=== PATIENT | male | born 1940 | race Caucasian/White ===

== ENCOUNTER 2016-09-09 10:34 | Inpatient (IN) ==
[2016-09-09] MEDS ORDERED: ONDANSETRON 4 MG/2 ML INJECTION IVP PRN (11:20)
[2016-09-09] MEDS ORDERED: ALBUTEROL/IPRATROPIUM 2.5mg-0.5mg/3ml NEB AEROSOL PRN (13:25)
--- OUTSIDE RECORDS SUMMARY | 2016-09-09 13:36 | External Medical Summary | Continuity of Care Document ---
:1940 Author Organization [facility] Care Team Providers Name Role Phone IRMA ALVAREZ Admitting Physician IRMA ALVAREZ Attending Physician PING GRIGGS Consulting Physician COLIN MILES Consulting Physician Hospital Admission Diagnosis No data in the System Social History Element Description Code Description Smoking Status Code Start Date End Date System Smoking Status [id number] Never smoker SNOMED-CT Problems No data in the system Medications RxNorm Medication Dose Route Instructions Indications Start End Status Date Date 733343 Gemfibrozil 600 600 Oral orally 2 times Active MG Oral Tablet milligram per day (administer 30 minutes before morning and evening meals) Ibuprofen 800 800 Oral orally pain Active MG Oral Tablet milligram Multivitamins 1 Oral orally every Active tablet-caps day ule 4510391 [place]-3 Acid Oral orally Active Ethyl Esters (administer ([facility]) 1250 MG with a meal) Oral Capsule 7646 Omeprazole 20 Oral orally 2 times Active milligram per day (swallow whole (do not crush or chew) OR open capsule, sprinkle contents over tablespoonful applesauce; swallow all immediately/do not chew pellets) 323260 Pramipexole 0.5 Oral orally every Active milligram day at bedtime 357315 Tamsulosin 0.4 Oral orally every No hydrochloride milligram day Longer 0.4 MG Oral Active Capsule Allergies Code Code System Allergy Type Reaction Severity Start End Date Status Substance Date 4839350 RXNorm Nickel Drug Unknown Active allergy 5 7400 RXNorm Nickel Drug Unknown Active allergy 5 Results Laboratory Results Order: CBC With Automated DifferentialLegend: D=Delta, H=High, L=Low, HH=Critical High, LL=Critical Low, AA=Critical Alpha-Numeric, C=Corrected, A=Abnormal LOINC Test Result Flag Range Units Date 6690-2 1WBC # Bld Auto 4.5 4.5-11.0 10^3/mm3 07/08/2016 16:25 65864-4 1Retics # Auto 4.28 L 4.50-5.90 10^6/mm3 07/08/2016 16:25 27378-0 1Hgb BldV-mCnc 12.0 L 13.5-17.5 g/dl 07/08/2016 16:25 4544-3 1Hct VFr Bld Auto 37.5 L 41.0-53.0 % 07/08/2016 16:25 787-2 1MCV RBC Auto 87.6 82.0-100.0 10^6/mm3 07/08/2016 16:25 785-6 1MCH RBC Qn Auto 28.0 27.0-34.0 pg 07/08/2016 16:25 786-4 1MCHC RBC Auto-mCnc 32.0 32.0-36.0 g/dl 07/08/2016 16:25 788-0 1RDW RBC Auto-Rto 13.8 11.7-15.0 % 07/08/2016 16:25 777-3 1Platelet # Bld Auto 178 150-450 10^3/mm3 07/08/2016 16:25 98858-5 1PMV Bld 11.1 H 7.4-10.4 07/08/2016 16:25 69534-7 1Neutrophils # CSF 55.3 40.0-74.0 % 07/08/2016 16:25 1LYMPH% 27.8 14.0-46.0 % 07/08/2016 16:25 77275-5 1CD43 Ag Tiss Ql ImStn 15.1 H 4.0-13.0 % 07/08/2016 16:25 711-2 1Eosinophil # Bld Auto 1.1 <=4.0 % 07/08/2016 16:25 704-7 1Basophils # Bld Auto 0.7 <=3.0 % 07/08/2016 16:25 751-8 1Neutrophils # Bld Auto 2.5 1.8-7.8 07/08/2016 16:25 23144-3 1Lymphocytes # Bld 1.3 0.7-4.5 07/08/2016 16:25 79932-8 1CD43 Ag Tiss Ql ImStn 0.7 0.1-1.0 07/08/2016 16:25 711-2 1Eosinophil # Bld Auto 0.05 <=4.00 07/08/2016 16:25 704-7 1Basophils # Bld Auto 0.03 <=0.20 07/08/2016 16:25 1MANDIFF N 07/08/2016 16:25 51750-7 1RBC Bld Auto N 07/08/2016 16:25 Performing Lab Footnotes:[address] [place] [address] - [id number] - [address] [place] [address] [place] Order: Comprehensive Metabolic PanelLegend: D=Delta, H=High, L=Low, HH= Critical High, LL=Critical Low, AA=Critical Alpha-Numeric, C=Corrected, A= Abnormal LOINC Test Result Flag Range Units Date 2345-7 1Glucose SerPl-mCnc 89 70-105 mg/dl 07/08/2016 16:25 3094-0 1BUN SerPl-mCnc 16 7-25 mg/dl 07/08/2016 16:25 2160-0 1Creat SerPl-mCnc 1.2 0.6-1.3 mg/dl 07/08/2016 16:25 78806-3 1Creat/Urea nit SerPl 13 13-39 07/08/2016 16:25 2951-2 1Sodium SerPl-sCnc 135 135-145 mmol/L 07/08/2016 16:25 05965-0 1Potassium SerPl-mCnc 4.3 3.5-5.1 mmol/L 07/08/2016 16:25 2075-0 1Chloride SerPl-sCnc 102 98-107 mmol/l 07/08/2016 16:25 8-9 1CO2 SerPl-sCnc 29 21-31 mmol/l 07/08/2016 16:25 64700-1 1Anion Gap SerPl-sCnc 8 L 9-16 mmol/L 07/08/2016 16:25 2692-2 1Osmolality SerPl 281 277-298 mOsm/kg 07/08/2016 16:25 22344-3 1Calcium SerPl-mCnc 8.8 8.2-10.0 mg/dl 07/08/2016 16:25 1742-6 1ALT SerPl-cCnc 11 7-52 IU/L 07/08/2016 16:25 1920-8 1AST SerPl-cCnc 40 H 13-39 IU/L 07/08/2016 16:25 1715-2 1ACP SerPl-cCnc 73 34-104 U/L 07/08/2016 16:25 1975-2 1Bilirub SerPl-mCnc 0.6 0.3-1.0 mg/dl 07/08/2016 16:25 2885-2 1Prot SerPl-mCnc 6.3 6.0-8.3 g/dL 07/08/2016 16:25 1751-7 1Albumin SerPl-mCnc 3.8 3.5-5.7 g/dl 07/08/2016 16:25 2336-6 1Globulin Ser-mCnc 2.5 2.3-3.2 g/dL 07/08/2016 16:25 1759-0 1Albumin/Glob SerPl 1.5 1.2-2.0 07/08/2016 16:25 1GFR 59 L 60-116 GFRunits 07/08/2016 16:25 [id number] [address] [place] [id number] [place] [address] [place] Vital Signs No data in the system Plan of Care No data in the system Procedures No data in the system Encounters No data in the system Immunizations No data in the system Functional Status No data in the system Hospital Discharge Instructions No data in the system
--- OUTSIDE RECORDS SUMMARY | 2016-09-09 13:36 | External Medical Summary | Continuity of Care Document ---
:1940 Author Organization [facility] Care Team Providers Name Role Phone IRMA ALVAREZ Admitting Physician IRMA ALVAREZ Attending Physician PING GRIGGS Consulting Physician COLIN MILES Consulting Physician Hospital Admission Diagnosis Code Admission Diagnosis Date ENCOUNTER FOR PREPROCEDURAL CARDIOVASCULAR EXAMINATION Social History Element Description Code Description Smoking Status Code Start Date End Date System Smoking Status [id number] Never smoker SNOMED-CT Problems No data in the system Medications RxNorm Medication Dose Route Instructions Indications Start End Status Date Date 994218 Gemfibrozil 600 600 Oral orally 2 times Active MG Oral Tablet milligram per day (administer 30 minutes before morning and evening meals) Ibuprofen 800 800 Oral orally pain Active MG Oral Tablet milligram Multivitamins 1 Oral orally every Active tablet- ule 2860074 [place]-3 Acid Oral orally Active Ethyl Esters (administer ([facility]) 1250 MG with a meal) Oral Capsule 7646 Omeprazole 20 Oral orally 2 times Active milligram per day (swallow whole (do not crush or chew) OR open capsule, sprinkle contents over tablespoonful applesauce; swallow all immediately/do not chew pellets) 767091 Pramipexole 0.5 Oral orally every Active milligram day at bedtime 929877 Tamsulosin 0.4 Oral orally every No hydrochloride milligram day Longer 0.4 MG Oral Active Capsule Allergies Code Code System Allergy Type Reaction Severity Start End Date Status Substance Date 9694582 RXNorm Nickel Drug Unknown Active allergy 5 7400 RXNorm Nickel Drug Unknown Active allergy 5 Results Laboratory Results Order: CBC With Automated DifferentialLegend: D=Delta, H=High, L=Low, HH=Critical High, LL=Critical Low, AA=Critical Alpha-Numeric, C=Corrected, A=Abnormal LOINC Test Result Flag Range Units Date 6690-2 1WBC # Bld Auto 4.5 4.5-11.0 10^3/mm3 07/08/2016 16:25 67445-6 1Retics # Auto 4.28 L 4.50-5.90 10^6/mm3 07/08/2016 16:25 60733-2 1Hgb BldV-mCnc 12.0 L 13.5-17.5 g/dl 07/08/2016 [...] Bld Auto 178 150-450 10^3/mm3 07/08/2016 16:25 41833-7 1PMV Bld 11.1 H 7.4-10.4 07/08/2016 16:25 99230-8 1Neutrophils # CSF 55.3 40.0-74.0 % 07/08/2016 16:25 1LYMPH% 27.8 14.0-46.0 % 07/08/2016 16:25 74916-4 1CD43 Ag Tiss Ql ImStn 15.1 H 4.0-13.0 % 07/08/2016 16:25 711-2 1Eosinophil # Bld Auto 1.1 <=4.0 % 07/08/2016 16:25 704-7 1Basophils # Bld Auto 0.7 <=3.0 % 07/08/2016 16:25 751-8 1Neutrophils # Bld Auto 2.5 1.8-7.8 07/08/2016 16:25 80377-3 1Lymphocytes # Bld 1.3 0.7-4.5 07/08/2016 16:25 48327-5 1CD43 Ag Tiss Ql ImStn 0.7 0.1-1.0 07/08/2016 16:25 711-2 1Eosinophil # Bld Auto 0.05 <=4.00 07/08/2016 16:25 704-7 1Basophils # Bld Auto 0.03 <=0.20 07/08/2016 16:25 1MANDIFF N 07/08/2016 16:25 89965-1 1RBC Bld Auto N 07/08/2016 16:25 Performing Lab Footnotes:[address] [place] [address] - [id number] - [address] [place] [address] [place] Order: Comprehensive Metabolic PanelLegend: D=Delta, H=High, L=Low, HH= Critical High, LL=Critical Low, AA=Critical Alpha-Numeric, C=Corrected, A= Abnormal LOINC Test Result Flag Range Units Date 57 1Glucose SerPl-mCnc 89 70-105 mg/dl 07/08/2016 16:25 3094-0 1BUN SerPl-mCnc 16 7-25 mg/dl 07/08/2016 16:25 2160-0 1Creat SerPl-mCnc 1.2 0.6-1.3 mg/dl 07/08/2016 16:25 05871-5 1Creat/Urea nit SerPl 13 13-39 07/08/2016 16:25 2951-2 1Sodium SerPl-sCnc 135 135-145 mmol/L 07/08/2016 16:25 31231-3 1Potassium SerPl-mCnc 4.3 3.5-5.1 mmol/L 07/08/2016 16:25 2075-0 1Chloride SerPl-sCnc 102 98-107 mmol/l 07/08/2016 16:25 8-9 1CO2 SerPl-sCnc 29 21-31 mmol/l 07/08/2016 16:25 94296-9 1Anion Gap SerPl-sCnc 8 L 9-16 mmol/L 07/08/2016 16:25 2692-2 1Osmolality SerPl 281 277-298 mOsm/kg 07/08/2016 16:25 38416-6 1Calcium SerPl-mCnc 8.8 8.2-10.0 mg/dl 07/08/2016 16:25 [...] L 60-116 GFRunits 07/08/2016 16:25 [id number] [address] [place] [address] - MUNOZ M [place] Vital Signs No data in the system Plan of Care No data in the system Procedures No data in the system Encounters Date Code Diagnosis Status (ICD10) - D54879 ENCOUNTER PREPROCEDURAL CV EXAM Active Immunizations No data in the system Functional Status No data in the system Hospital Discharge Instructions No data in the system
--- OUTSIDE RECORDS SUMMARY | 2016-09-09 13:36 | External Medical Summary | Summary of Care ---
:1940 Author Name Tiffanie Avila M.D. Address Unavailable Unavailable , Care Team Providers Name Role Phone Tiffanie Avila M.D. 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 Medications Name Dates Details CeleXA 20 MG Oral Tablet Refills:0 EppM.D., Ti Moreno [id number]-1028 Active Flomax 0.4 MG Oral Capsule Refills:0 EppM.D., Ti Moreno Tnesm7-Oyp-3234 Active Magnesium Oxide 400 MG Oral Tablet Refills:0 EppM.D., Ti Moreno Coodo0-Usz-4481 Active Allergies and Adverse Reactions Name Dates Details No Known Drug Allergies(Allergy) Status:Active Procedures Procedure Dates Details Procedures not documented Immunization Name Dates Details Immunizations not documented Social History Smoking Status Name Dates Details Unknown if ever smoked Vital Signs Date Test Result Details 04-Jul-2016 09:40 Heart Rate 83/min Status:Comments:Location: ; Weight 146lb Status: Physical Findings 95 Status:Comments:O2 Saturation Results Date Description Value Details Results not documented Plan of Care Name Dates Details Planned Observations Planned Goals not documented Planned Encounters Appointment; Provider: Ti Avila M.D. [id number] 11:30 Appointment; Provider: Ti Avila M.D. [id number] 12:00 Instructions Name Dates Details Instructions not documented Encounters Appointment; Ti Avila M.D. [id number] Encounter Diagnosis:Problem not documented 09:30
--- OUTSIDE RECORDS SUMMARY | 2016-09-09 13:36 | External Medical Summary | Summary of Care ---
:1940 Author Name Tiffanie Avila M.D. 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 Non-Hodgkin's lymphoma(202.80, C85.90) Status:Active Medications Name Dates Details CeleXA 20 MG Oral Tablet Refills:0 EppM.D., Ti Moreno [id number]-Dmp-4895 Active Flomax 0.4 MG Oral Capsule Refills:0 EppM.D., Ti Moreno Active Magnesium Oxide 400 MG Oral Tablet Refills:0 EppM.D., Ti Moreno Jodwa1-Nni-1218 Active Allergies and Adverse Reactions Name Dates Details No Known Drug Allergies(Allergy) Status:Active Procedures Procedure Dates Details History of Surgery For Abdominal Aortic Aneurysm Procedures not documented Immunization Name Dates Details Immunizations not documented Family History Mother Name Dates Details Family history of malignant neoplasm(V16.9, Z80.9) Status:Active Social History Name Dates Details - Status: Smoking Status Name Dates Details Former smoker Vital Signs Date Test Result Details 04-Jul-2016 09:40 Heart Rate 83/min Status:Comments:Location: ; Weight 146lb Status: Physical Findings 95 Status:Comments:O2 Saturation Results Date Description Value Details Results not documented Plan of Care Name Dates Details Planned Observations Planned Goals not documented Planned Encounters Appointment; Provider: Ti Avila M.D. [id number] 11:30 Appointment; Provider: Ti Avila M.D. 12:00 Instructions Name Dates Details Instructions not documented Encounters Appointment; Ti Avila M.D. Encounter Diagnosis:Problem not documented 09:30
--- OUTSIDE RECORDS SUMMARY | 2016-09-09 13:36 | External Medical Summary | Summary of Care ---
[...] MG Oral Tablet Refills:0 EppM.D., Ti Moreno Meaxw8-Aua-5403 Active Flomax 0.4 MG Oral Capsule Refills:0 EppM.D.Ti Uroza9-Ppf-7842 Active Magnesium Oxide 400 MG Oral Tablet Refills:0 EppM.D.Ti Qnxtf5-Gie-4530 Active Allergies and Adverse Reactions Name Dates [...] Details Planned Observations Planned Goals not documented Instructions Name Dates Details Instructions not documented Encounters Appointment; Ti Avila M.D. [id number] Encounter Diagnosis:Problem not documented 09:30
--- OUTSIDE RECORDS SUMMARY | 2016-09-09 13:36 | External Medical Summary ---
:1940 Author Name [facility] Care Team Providers Name Role Phone MD MILES JEFFREY Primary Care Provider [phone] Reason For Visit Reason for Visit from 07/12/2016 10:57 AM:Pt Stated Reason for Adm : taking a polpy off of the back of my tongue Chief Complaint OROPHARYNGEAL MASS Social History Social History from 07/12/2016 2:02 PM:Tobacco Use? : Former SmokerSocial History from 07/12/2016 10:57 AM:Tobacco Use? : Former Smoker Functional Status Functional Status from 07/12/2016 2:08 PM:LOC : AlertFunctional Status from 2016 2:07 PM:LOC : AlertFunctional Status from 07/12/2016 1:29 PM:LOC : AlertFunctional Status from 07/12/2016 10:57 AM:LOC : AlertOriented To : Person, Place,Time,EventWeight Bearing Status : FullAssist Level : Independent# Assists : Independent Vital Signs Hospital Vital Signs from 07/12/2016 3:00 PM:Temp : 98.1Heart Rate : 81Resp Rate : 20Systolic BP (mmHg) : 117Diastolic BP (mmHg) : 45Mean BP (mmHg) : 64O2 Saturation (%) : 96Hospital Vital Signs from 07/12/2016 2:45 PM:Heart Rate : 76Resp Rate : 16Systolic BP (mmHg) : 121Diastolic BP (mmHg) : 53Mean BP (mmHg) : 81O2 Saturation (%) : 97Hospital Vital Signs from 07/12/2016 2:30 PM:Heart Rate : 75Resp Rate : 17Systolic BP (mmHg) : 123Diastolic BP (mmHg) : 94Mean BP ( mmHg) : 108O2 Saturation (%) : 97Hospital Vital Signs from 07/12/2016 2:20 PM: Heart Rate : 81Resp Rate : 8Systolic BP (mmHg) : 138Diastolic BP (mmHg) : 66Mean BP (mmHg) : 91O2 Saturation (%) : 98Hospital Vital Signs from 07/12/2016 2 :15 PM:Heart Rate : 75Resp Rate : 10Systolic BP (mmHg) : 174Diastolic BP (mmHg) : 151Mean BP (mmHg) : 155O2 Saturation (%) : 98Hospital Vital Signs from 2016 2:10 PM:Temp : 97.6Heart Rate : 77Resp Rate : 17Systolic BP (mmHg) : 127Diastolic BP (mmHg) : 67Mean BP (mmHg) : 83O2 Saturation (%) : 96Hospital Vital Signs from 07/12/2016 2:05 PM:Heart Rate : 73Resp Rate : 10O2 Saturation (% ) : 98Hospital Vital Signs from 07/12/2016 2:00 PM:Heart Rate : 76Resp Rate : 14Systolic BP (mmHg) : 148Diastolic BP (mmHg) : 73Mean BP (mmHg) : 94O2 Saturation (%) : 98Hospital Vital Signs from 07/12/2016 1:55 PM:Heart Rate : 76Resp Rate : 10Systolic BP (mmHg) : 145Diastolic BP (mmHg) : 71Mean BP (mmHg) : 114O2 Saturation (%) : 97Hospital Vital Signs from 07/12/2016 1:50 PM:Heart Rate : 79Resp Rate : 11Systolic BP (mmHg) : 150Diastolic BP (mmHg) : 78Mean BP ( mmHg) : 104O2 Saturation (%) : 97Hospital Vital Signs from 07/12/2016 1:45 PM: Heart Rate : 76Resp Rate : 8Systolic BP (mmHg) : 143Diastolic BP (mmHg) : 74Mean BP (mmHg) : 93O2 Saturation (%) : 96Hospital Vital Signs from 07/12/2016 1 :40 PM:Heart Rate : 80Resp Rate : 10Systolic BP (mmHg) : 146Diastolic BP (mmHg) : 75Mean BP (mmHg) : 94O2 Saturation (%) : 99Hospital Vital Signs from 2016 1:35 PM:Heart Rate : 81Resp Rate : 13Systolic BP (mmHg) : 142Diastolic BP ( mmHg) : 88Mean BP (mmHg) : 95O2 Saturation (%) : 100Hospital Vital Signs from 01/2017 1:30 PM:Heart Rate : 81Resp Rate : 8Systolic BP (mmHg) : 142Diastolic BP (mmHg) : 74Mean BP (mmHg) : 90O2 Saturation (%) : 100Hospital Vital Signs from 07/12/2016 1:25 PM:Temp : 98.1Heart Rate : 82Resp Rate : 10Systolic BP (mmHg ) : 141Diastolic BP (mmHg) : 73Mean BP (mmHg) : 101O2 Saturation (%) : 100Hospital Vital Signs from 07/12/2016 11:30 AM:Weight : 61.6/ kgHeight : 5/6 ft ,inTemperature : 98.0 FPulse : 71Respirations : 16BP : 131/61Hospital Vital Signs from 07/12/2016 10:57 AM:Weight : 61.6/ kgHeight : 5/6 ft,in Results Problems Encounter Diagnosis Fall Risk Status:Active. Encounters Encounter Diagnosis Fall Risk Status:Active. Plan of Care Follow-up Appointments from 07/12/2016 2:02 PM:#1 Office appointment: : Dr. Alvarez# 1 Date/Time : 07/18/2016 11:30 AMAddress # 1 : [facility]: [address] [place]- or Procedures Completed Direct laryngoscopy with excision oropharyngeal mass , by MD IRMA ALVAREZ, on 07/12/2016 12:03 PM Immunizations No immunizations administered or ordered. Hospital Course Hospital Discharge Instructions How to care for yourself at home from 07/12/2016 2:02 PM:Discharge Activity : Activity as tolerated,May ShowerDo not drive or operate machinery for: : 24 hoursDischarge Diet : As before hospitalization,Diet as toleratedDischarge Diet : : Avoid greasy and spicy foods for 24 hours as these may cause nausea. Eat a small snack prior to taking pain medicationDischarge Wound Care : Notify your physician if the following develops: redness, swelling, drainage or color of drainage changes, odor or increased pain.Call your doctor if: : Fever over 101 F or severe chills,Tingling or numbness develops,You have persistent or worsening symptomsSpecific Discharge Teaching Instructions provided: : Luisarge on Warfarin : No Allergies, Adverse Reactions, Alerts This section is enrollment eligibility representative of the current allergy information, at the time of the CCD generation. In the case of regeneration of the CCD, the allergy information may not reflect the state of knownallergies at the time of the CCD' s subject visit. No Latex Allergy.No IV Contrast Allergy.No Known Drug Allergies. Medication Medication reconciliation has not been performed.
--- OUTSIDE RECORDS SUMMARY | 2016-09-09 13:36 | External Medical Summary | Continuity of Care Document ---
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 Social History Element Description Code Description Smoking Status Code Start Date End Date System Smoking Status 0219424 Former smoker SNOMED-CT Problems No data in the system Medications RxNorm Medication Dose Route Instructions Indications Start End Status Date Date 918175 Gemfibrozil 600 600 Oral orally 2 times Active MG Oral Tablet milligram per day (administer 30 minutes before morning and evening meals) 5640 Ibuprofen 800 Oral orally pain Active milligram Multivitamins 1 Oral orally every Active tablet-caps day ule 8606403 [place]-3 Acid Oral orally Active Ethyl Esters (administer ([facility]) 1250 MG with a meal) Oral Capsule 7646 Omeprazole 20 Oral orally 2 times Active milligram per day (swallow whole (do not crush or chew) OR open capsule, sprinkle contents over tablespoonful applesauce; swallow all immediately/do not chew pellets) 169542 Pramipexole 0.5 Oral orally every Active milligram day at bedtime 224398 Tamsulosin 0.4 Oral orally every No hydrochloride milligram day Longer 0.4 MG Oral Active Capsule Allergies Code Code System Allergy Type Reaction Severity Start End Date Status Substance Date 7224299 RXNorm Nickel Drug Unknown Active allergy 5 7400 RXNorm Nickel Drug Unknown Active allergy 5 Results No data in the system Vital Signs Vitals Value Date O2% BldC Oximetry 97 11/14/2015 BP Systolic 134 mmHg 11/14/2015 BP Diastolic 70 mmHg 11/14/2015 Body Temperature 98.7 F 11/14/2015 Respiratory Rate 18 11/14/2015 Height 68 in 11/14/2015 Weight Measured 153.6 lbs 11/14/2015 BSA (Body Surface Area) 1.87833 11/14/2015 BMI (Body Mass Index) 23.5 11/14/2015 Plan of Care No data in the system Procedures Code Code System Procedure Name Target Site Date of Procedure 82465 CPT4 REPAIR ENTROPION EXCISION TARSAL WEDGE Encounters Date Code Diagnosis Status (ICD10) - Q37130 SENILE ENTROPION LEFT LOWER EYELID Active Immunizations No data in the system Functional Status No data in the system Hospital Discharge Instructions BeahmINSTRUCTIONS FOR EYE DROPS:Erythromycin ointment twice daily.Ice pack tonight 20 minutes an hour for 4 hours.May use frozen corn/peasIf you are taking glaucoma drops, continue as you usually do. Do NOT stop your glaucoma medicationsDiet as tolerated.No driving until Dr. Griggs gives his approval.Resume regular medications.Activity LevelActivities - Your physician will inform you when you may return to normal activities.Yes, up and about as tolerated.Yes, shower or bath.PLEASE TAKE NOTE:If you are having excessive or persistent pain, swelling, bleeding, nausea, or other problems you should call your surgeon, .If you are unable to contact your surgeon, call [facility], .Thank you for using [facility].YOUR NEXT APPOINTMENT IS:Friday11/15/2015 at 8:[address] Griggs's [place] office.
--- OUTSIDE RECORDS SUMMARY | 2016-09-09 13:36 | External Medical Summary | Continuity of Care Document ---
:1940 Author Organization [facility] Care Team Providers Name Role Phone ABIEL CARBAJAL Admitting Physician ABIEL CARBAJAL Attending Physician COLIN MILES Primary Care Physician Hospital Admission Diagnosis No data in the System Social History Element Description Code Description Smoking Status Code Start Date End Date System Smoking Status 5059950 Former smoker SNOMED-CT 2015 Problems Code Code System Problem Name Start Date End Date Status 702309278 SNOMED-CT Dyspnea 08/2016 Active Medications RxNorm Medication Dose Route Instructions Indications Start End Status Date Date 19720303 Acyclovir 400 MG 400 Oral orally 2 times Active Oral Tablet milligram per day Allopurinol 300 300 Oral orally every Active MG Oral Tablet milligram day 20020831 Citalopram 20 MG 20 Oral orally every Active Oral Tablet milligram day 6581 Magnesium Oxide 400 Oral orally 2 times health and Active milligram per day (; wellness Ordered Dose: of magnesium oxide) 34655 Ondansetron 8 Oral orally every nausea and Active milligram 12 hours as vomiting needed. 8640 Prednisone 100 Oral orally every Active milligram day (administer with food or milk;) 19820805 Prochlorperazine 10 Oral orally every 4 nausea and Active 10 MG Oral milligram to 6 hours as vomiting Tablet needed. (do not exceed 4 doses in a 24 hour period;) 709321 Tamsulosin 0.4 Oral orally every Active hydrochloride milligram day 0.4 MG Oral Capsule 20020831 Citalopram 20 MG 20 Oral orally every No Oral Tablet milligram day Longer Active Fiber 0.4 gram Oral orally every constipation No day as needed. Longer Active 508528 Gemfibrozil 600 600 Oral orally 2 times No MG Oral Tablet milligram per day Longer (administer 30 Active minutes before morning and evening meals) 189105 Ibuprofen 800 MG 800 Oral orally pain No Oral Tablet milligram Longer Active 069010 Levofloxacin 500 500 Oral orally every No MG Oral Tablet milligram day Longer Active Multivitamins 1 Oral orally every No tablet-cap day Longer pradip Active 3374856 [place]-3 Acid Oral orally No Ethyl Esters (administer Longer (HALFWAY) 1250 MG with a meal) Active Oral Capsule 7646 Omeprazole 20 Oral orally 2 times No milligram per day Longer (swallow whole Active (do not crush or chew) OR open capsule, sprinkle contents over tablespoonful applesauce; swallow all immediately/do not chew pellets) 883107 Pramipexole 0.5 Oral orally every No milligram day at bedtime Longer Active 067457 Tamsulosin 0.4 Oral orally every No hydrochloride milligram day Longer 0.4 MG Oral Active Capsule Allergies No Known Allergies Results Laboratory Results Order: BNP B type Natiuretic PeptidesLegend : D=Delta, H=High, L=Low, HH=Critical High, LL=Critical Low, AA=Critical Alpha- Numeric, C=Corrected, A=Abnormal LOINC Test Result Flag Range Units Date 23278-7 1BNP SerPl-mCnc 739.0 H 0.0-100.0 pg/ml 09/07/2016 10:23 Performing Lab Footnotes:[address] [place] [address] - [id number] - [address] [place] [id number] [place] [address] Order: Blood Gas ArterialLegend: D=Delta, H=High, L=Low, HH=Critical High, LL= Critical Low, AA=Critical Alpha-Numeric, C=Corrected, A=Abnormal LOINC Test Result Flag Range Units Date 29333-6 1Horowitz index temp adj RA 09/07/2016 09:25 BldMV+IhG-Rto 2756-5 1pH Ur 7.435 7.350-7.450 09/07/2016 09:25 2019 1pCO2 BldA 34.0 L 35.0-45.0 mm/hg 09/07/2016 09:25 1PO2 48.0 L 60.0-100.0 mm/hg 09/07/2016 09:25 8 1HCO3 Ser-sCnc 22.8 22.0-26.0 mmol/l 09/07/2016 09:25 1924-7 1Base excess BldA Calc-sCnc -1.0 -2.0-3.0 mmol/l 09/07/2016 09:25 2025-3 1CO2 BldA-sCnc 24.0 24.0-30.0 mmol/l 09/07/2016 09:25 3-6 1SaO2 % Bld from pO2 85.0 L 97.0-99.0 % 09/07/2016 09:25 [facility]forming [facility]notes:[id number] [address] [place] [address] - [facility] Order: CBC With Manual DifferentialOrder Result Comment:1Critical to Tavia RN- 1151 @ 6512. akLegend: D=Delta, H=High, L=Low, HH=Critical High, LL=Critical Low , AA=Critical Alpha-Numeric, C=Corrected, A=Abnormal LOINC Test Result Flag Range Units Date 78902 1WBC # Bld Auto 29.1 CH 4.5-11.0 10^3/mm3 09/07/2016 09:04 Test Comment: 1Confirmed by repeat analysis. 08489-7 1Retics # Auto 4.15 L 4.50-5.90 10^6/mm3 09/07/2016 09:04 55686-9 1Hgb BldV-mCnc 11.9 L 13.5-17.5 g/dl 09/07/2016 09:04 4544-3 1Hct VFr Bld Auto 36.3 L 41.0-53.0 % 09/07/2016 09:04 787-2 1MCV RBC Auto 87.5 82.0-100.0 10^6/mm3 09/07/2016 09:04 785-6 1MCH RBC Qn Auto 28.7 27.0-34.0 pg 09/07/2016 09:04 786-4 1MCHC RBC Auto-mCnc 32.8 32.0-36.0 g/dl 09/07/2016 09:04 788-0 1RDW RBC Auto-Rto 15.6 H 11.7-15.0 % 09/07/2016 09:04 777-3 1Platelet # Bld Auto 148 L 150-450 10^3/mm3 09/07/2016 09:04 13622-4 1PMV Bld 11.2 H 7.4-10.4 09/07/2016 09:04 94098-9 1Neutrophils # CSF 86 H 40-74 09/07/2016 09:04 1LYMPH 5 L 14-46 09/07/2016 09:04 35764-4 1Monocytes # CSF 3 L 4-13 09/07/2016 09:04 1BANDS 6 H 0-3 09/07/2016 09:04 702-1 1Anisocytosis Bld Ql Smear 1+ 09/07/2016 09:04 80566-0 1Hypochromia Bld Ql Auto Slight 09/07/2016 09:04 1WBCCOM Increased 09/07/2016 09:04 75703-6 1Bizarre platelets Bld Ql Decreased 09/07/2016 09:04 Smear Performing Lab Footnotes:[facility] [id number] [address], [place] [id number] [place] [address] M [place] Order: Comprehensive Metabolic PanelLegend: D=Delta, H=High, L=Low, HH= Critical High, LL=Critical Low, AA=Critical Alpha-Numeric, C=Corrected, A= Abnormal LOINC Test Result Flag Range Units Date 2344-08 1Glucose SerPl-mCnc 134 H 70-105 mg/dl 09/07/2016 09:04 3094-0 1BUN SerPl-mCnc 26 H 7-25 mg/dl 09/07/2016 09:04 2160-0 1Creat SerPl-mCnc 1.1 0.6-1.3 mg/dl 09/07/2016 09:04 53387-5 1Creat/Urea nit SerPl 24 13-39 09/07/2016 09:04 2951-2 1Sodium SerPl-sCnc 134 L 135-145 mmol/L 09/07/2016 09:04 07725-0 1Potassium SerPl-mCnc 3.7 3.5-5.1 mmol/L 09/07/2016 09:04 2075-0 1Chloride SerPl-sCnc 99 98-107 mmol/l 09/07/2016 09:04 2028-9 1CO2 SerPl-sCnc 24 21-31 mmol/l 09/07/2016 09:04 30947-8 1Anion Gap SerPl-sCnc 15 9-16 mmol/L 09/07/2016 09:04 2692-2 1Osmolality SerPl 285 277-298 mOsm/kg 09/07/2016 09:04 49411-7 1Calcium SerPl-mCnc 8.7 8.2-10.0 mg/dl 09/07/2016 09:04 1742-6 1ALT SerPl-cCnc 24 7-52 IU/L 09/07/2016 09:04 1920-8 1AST SerPl-cCnc 121 H 13-39 IU/L 09/07/2016 09:04 1715-2 1ACP SerPl-cCnc 86 34-104 U/L 09/07/2016 09:04 1975-2 1Bilirub SerPl-mCnc 0.8 0.3-1.0 mg/dl 09/07/2016 09:04 2885-2 1Prot SerPl-mCnc 6.0 6.0-8.3 g/dL 09/07/2016 09:04 1751-7 1Albumin SerPl-mCnc 3.7 3.5-5.7 g/dl 09/07/2016 09:04 2336-6 1Globulin Ser-mCnc 2.3 2.3-3.2 g/dL 09/07/2016 09:04 1759-0 1Albumin/Glob SerPl 1.6 1.2-2.0 09/07/2016 09:04 1GFR 62 60-116 GFRunits 09/07/2016 09:04 Performing Lab Footnotes:[facility] [id number] - [address] [place] [address] - [facility] Vital Signs Vitals Value Date Body Temperature 97.1 F 09/07/2016 Respiratory Rate 20 09/07/2016 O2% BldC Oximetry 88 09/07/2016 BP Systolic 104 mmHg 09/07/2016 BP Diastolic 62 mmHg 09/07/2016 Height 69 in 09/07/2016 Weight Measured 140 lbs 09/07/2016 BSA (Body Surface Area) 1.13045 09/07/2016 BMI (Body Mass Index) 20.7 09/07/2016 Plan of Care No data in the system Procedures No data in the system Encounters No data in the system Immunizations No data in the system Functional Status No data in the system Hospital Discharge Instructions No data in the system
--- OUTSIDE RECORDS SUMMARY | 2016-09-09 13:36 | External Medical Summary | Summary of Care ---
[...] MG Oral Tablet Refills:0 EppM.D., Ti Moreno [id number] Active Flomax 0.4 MG Oral Capsule Refills:0 EppM.D.Ti [id number] Active Magnesium Oxide 400 MG Oral Tablet Refills:0 EppM.D.Ti [id number]-1507 Active Allergies and Adverse Reactions Name Dates [...] not documented Encounters Appointment; Ti Avila M.D. [id number] Encounter Diagnosis:Problem not documented 09:30
--- OUTSIDE RECORDS SUMMARY | 2016-09-09 13:36 | External Medical Summary | Continuity of Care Document ---
:1940 Author Organization [facility] Care Team Providers Name Role Phone ABIEL CARBAJAL Admitting Physician ABIEL CARBAJAL Attending Physician COLIN MILES Primary Care Physician Hospital Admission Diagnosis No data in the System Social History Element Description Code Description Smoking Status Code Start Date End Date System Smoking Status [id number] Former smoker SNOMED-CT 2015 Problems Code Code System Problem Name Start Date End Date Status 158722937 SNOMED-CT Dyspnea 08/2016 Active Medications RxNorm Medication Dose Route Instructions Indications Start End Status Date Date 19720303 Acyclovir 400 400 Oral orally 2 times Active MG Oral Tablet milligra per day m 435 Albuterol 2.5 Inhalatio inhaled 4 Active milligra n times per day m 435 Albuterol 2 Inhalatio inhaled every shortness of Active inhalati n 4 to 6 hours breath or on as needed. wheezing (administer with spacer;) 19720308 Albuterol 2 MG 2 Oral orally every 4 shortness of Active Oral Tablet milligra to 6 hours as breath or m needed. wheezing Allopurinol 300 300 Oral orally every Active MG Oral Tablet milligra day m 20020831 Citalopram 20 20 Oral orally every Active MG Oral Tablet milligra day m 759698 Furosemide 40 40 Oral orally every Active MG Oral Tablet milligra morning m 82 Magnesium Oxide 400 Oral orally 2 times health and Active milligra per day (; wellness m Ordered Dose: of magnesium oxide) 03515 Ondansetron 8 Oral orally every nausea and Active milligra 12 hours as vomiting m needed. 777875 pantoprazole 40 40 Oral orally every Active MG Delayed milligra morning Release Oral m Tablet 19820805 Prochlorperazin 10 Oral orally every 4 nausea and Active e 10 MG Oral milligra to 6 hours as vomiting Tablet m needed. (do not exceed 4 doses in a 24 hour period;) 427039 Tamsulosin 0.4 Oral orally every Active hydrochloride milligra day 0.4 MG Oral m Capsule 20020831 Citalopram 20 20 Oral orally every No MG Oral Tablet milligra day Longer m Active Fiber 0.4 gram Oral orally every constipation No day as needed. Longer Active 102540 Gemfibrozil 600 600 Oral orally 2 times No MG Oral Tablet milligra per day Longer m (administer 30 Active minutes before morning and evening meals) Ibuprofen 800 800 Oral orally pain No MG Oral Tablet milligra Longer m Active 270904 Levofloxacin 500 Oral orally every No 500 MG Oral milligra day Longer Tablet m Active Multivitamins 1 Oral orally every No tablet-c day Longer apsule Active 3056601 [place]-3 Acid Oral orally No Ethyl Esters (administer Longer (MCFP) 1250 MG with a meal) Active Oral Capsule 7646 Omeprazole 20 Oral orally 2 times No milligra per day Longer m (swallow whole Active (do not crush or chew) OR open capsule, sprinkle contents over tablespoonful applesauce; swallow all immediately/do not chew pellets) 406083 Pramipexole 0.5 Oral orally every No milligra day at bedtime Longer m Active 8640 Prednisone 100 Oral orally every No milligra day Longer m (administer Active with food or milk;) 463621 Tamsulosin 0.4 Oral orally every No hydrochloride milligra day Longer 0.4 MG Oral m Active Capsule Allergies No Known Allergies Results No data in the system Vital Signs Vitals Value Date Body Temperature 96.5 F 09/09/2016 Respiratory Rate 28 09/09/2016 BP Systolic 89 mmHg 09/09/2016 BP Diastolic 52 mmHg 09/09/2016 Height 68 in 09/09/2016 Weight Measured 145 lbs 09/09/2016 BSA (Body Surface Area) 1.7828 09/09/2016 BMI (Body Mass Index) 22.2 09/09/2016 Plan of Care No data in the system Procedures No data in the system Encounters No data in the system Immunizations No data in the system Functional Status No data in the system Hospital Discharge Instructions No data in the system
--- OUTSIDE RECORDS SUMMARY | 2016-09-09 13:36 | External Medical Summary | Continuity of Care Document ---
:1940 Author Organization [facility] Care Team Providers Name Role Phone PING GRIGGS Admitting Physician PING GRIGGS Attending Physician Hospital Admission Diagnosis No data in the System Social History Element Description Code Description Smoking Status Code Start Date End Date System Smoking Status 2764180 Former smoker SNOMED-CT Problems No data in the system Medications RxNorm Medication Dose Route Instructions Indications Start End Status Date Date 004422 Gemfibrozil 600 600 Oral orally 2 times Active MG Oral Tablet milligram per day (administer 30 minutes before morning and evening meals) 5640 Ibuprofen 800 Oral orally pain Active milligram Multivitamins 1 Oral orally every Active tablet-caps day ule 2855537 [place]-3 Acid Oral orally Active Ethyl Esters (administer (FCI) 1250 MG with a meal) Oral Capsule 7646 Omeprazole 20 Oral orally 2 times Active milligram per day (swallow whole (do not crush or chew) OR open capsule, sprinkle contents over tablespoonful applesauce; swallow all immediately/do not chew pellets) 077851 Pramipexole 0.5 Oral orally every Active milligram day at bedtime 246604 Tamsulosin 0.4 Oral orally every No hydrochloride milligram day Longer 0.4 MG Oral Active Capsule Allergies Code Code System Allergy Type Reaction Severity Start End Date Status Substance Date 0862223 RXNorm Nickel Drug Unknown Active allergy 5 7400 RXNorm Nickel Drug Unknown Active allergy 5 Results No data in the system Vital Signs Vitals Value Date O2% BldC Oximetry 97 11/14/2015 BP Systolic 134 mmHg 11/14/2015 BP Diastolic 70 mmHg 11/14/2015 Body Temperature 98.7 F 11/14/2015 Respiratory Rate 18 11/14/2015 Height 68 in 11/14/2015 Weight Measured 153.6 lbs 11/14/2015 BSA (Body Surface Area) 1.01292 11/14/2015 BMI (Body Mass Index) 23.5 11/14/2015 [...] are unable to contact your surgeon, call [facility], .Thank you for using [facility].YOUR NEXT APPOINTMENT IS:Friday11/15/2015 at 8:[address] Griggs's [place] office.
--- OUTSIDE RECORDS SUMMARY | 2016-09-09 13:37 | External Medical Summary | Continuity of Care Document ---
:1940 Author Organization [facility] Care Team Providers Name Role Phone MISSAEL DIAZ Admitting Physician MISSAEL DIAZ Attending Physician GILES BILLS Referring Physician Hospital Admission Diagnosis No data in the System Social History Element Description Code Description Smoking Status Code Start Date End Date System Smoking Status 2100115 Former smoker SNOMED-CT Problems No data in the system Medications RxNorm Medication Dose Route Instructions Indications Start End Status Date Date 19720303 Acyclovir 400 MG 400 Oral orally 2 times Active Oral Tablet milligram per day Allopurinol 300 300 Oral orally every Active MG Oral Tablet milligram day 20020831 Citalopram 20 MG 20 Oral orally every Active Oral Tablet milligram day 20020831 Citalopram 20 MG 20 Oral orally every Active Oral Tablet milligram day Fiber 0.4 gram Oral orally every constipation Active day as needed. 19971005 Levofloxacin 500 500 Oral orally every Active MG Oral Tablet milligram day 6581 Magnesium Oxide 400 Oral orally 2 times health and Active milligram per day (; wellness Ordered Dose: of magnesium oxide) 62582 Ondansetron 8 Oral orally every nausea and Active milligram 12 hours as vomiting needed. 19820805 Prochlorperazine 10 Oral orally every 4 nausea and Active 10 MG Oral milligram to 6 hours as vomiting Tablet needed. (do not exceed 4 doses in a 24 hour period;) 310206 Tamsulosin 0.4 Oral orally every Active hydrochloride milligram day 0.4 MG Oral Capsule 184040 Gemfibrozil 600 600 Oral orally 2 times No MG Oral Tablet milligram per day Longer (administer 30 Active minutes before morning and evening meals) 958894 Ibuprofen 800 MG 800 Oral orally pain No Oral Tablet milligram Longer Active Multivitamins 1 Oral orally every No tablet-cap day Longer pradip Active 6053861 [place]-3 Acid Oral orally No Ethyl Esters (administer Longer (CORRECTION) 1250 MG with a meal) Active Oral Capsule 7646 Omeprazole 20 Oral orally 2 times No milligram per day Longer (swallow whole Active (do not crush or chew) OR open capsule, sprinkle contents over tablespoonful applesauce; swallow all immediately/do not chew pellets) 335824 Pramipexole 0.5 Oral orally every No milligram day at bedtime Longer Active 196131 Tamsulosin 0.4 Oral orally every No hydrochloride milligram day Longer 0.4 MG Oral Active Capsule Allergies No Known Allergies Results Radiology Results Order: USVA US guidance for vascular accessExam Completion Date:08/29/2016 10:45INDICATION: Follicular lymphomaUS guidance for vascular access: A Port-A-Cath was placed without difficulty.Ultrasound guidance was used to access the right jugular vein with amicropuncture set. Thevenotomy site was developed after placement of the.O18 wire.Then, an incision was made just inferior to the right clavicle and a pocketdeveloped for placement of the port.A tunneling procedure was then performed between the venotomy site and pocket.The .018 wire was replaced with an .035 wire. A large sheath was thendirected over the .035 wire.The tip of the catheter was inserted into the jugularvein and positionedwithin the right atrium. Proper placement of the tip of the Osga-L-Jxbwishryuj documented by fluoroscopic imaging. The sheath was then removed.Incisions were closed with 2- 0 and4-0 Vicryl. The incisions were dressedappropriately. The patient will follow-up with his oncologist shortly.The patient tolerated the procedure well.Conscious sedation was provided with 50 mcg Fentanyl and 2 mg Versed. Thepatient was continuously monitored for cardio-respiratory function, conscioussedation, and analgesia.Released By PASQUALE LIVINGSTONate: 08/29/2016 12:17Order: [id number] Chest x-ray 1 viewExam Completion Date:08/29/2016 08: 00INDICATION: XR PORTACATHCHEST 1-VIEW UPRIGHT (AP): COMPARISON: 2016FINDINGS: Right-sided Port-A-Cath. This is new since 08/28/2016. The tip is atthe junction of the SVC and right atrium. No complications are evident. Theheart size and pulmonaryvascularity are normal. Both lungs are fullyexpanded and clear. There are no effusions. The skeletal structures areintact. IMPRESSION: No acute radiographic abnormality.Released By TERESO BURKS, MDDate: 08/29/2016 09:51 Vital Signs Vitals Value Date O2% BldC Oximetry 99 08/29/2016 BP Systolic 116 mmHg 08/29/2016 BP Diastolic 61 mmHg 08/29/2016 Body Temperature 97.9 F 08/29/2016 Respiratory Rate 16 08/29/2016 Height 68 in 08/29/2016 Weight Measured 141.2 lbs 08/29/2016 BSA (Body Surface Area) 1.93478 08/29/2016 BMI (Body Mass Index) 21.6 08/29/2016 Plan of Care No data in the system Procedures No data in the system Encounters No data in the system Immunizations No data in the system Functional Status No data in the system Hospital Discharge Instructions ThompsonDischarge Instructionsdo not pull lift raise right arm over headLeave your dressing on for 24 hours. Reinforce if it becomes saturated.You may resume normal activities as tolerated. Use common sense in returning to your normal activities. If it hurts, don't do it.You may resume your regular diet.You may take Tylenol for pain if not allergic.Follow-up with your primary care physician as needed.Notify your physician in the event of increasing pain, redness, swelling, drainage from the operative site, difficulty walking, changes in sensation in hip or legs, new pain or problems with bowel orbladder function.The area of the procedure will be tender to touch for 24-48 hours.NO DRIVING NEXT 24 HOURS~You had medication and/or anesthesia that will make you drowsy today and even into tomorrow.
--- OUTSIDE RECORDS SUMMARY | 2016-09-09 13:37 | External Medical Summary | Summary of Care ---
[...] MG Oral Tablet Refills:0 EppM.D., Ti Moreno [id number] Active Flomax 0.4 MG Oral Capsule Refills:0 EppM.D., Ti Moreno Active Magnesium Oxide 400 MG Oral Tablet Refills:0 EppM.D., Ti Moreno [id number] Active Allergies and Adverse Reactions Name Dates [...] Planned Encounters Appointment; Provider: Ti Avila M.D. [id number] 11:30 Appointment; Provider: Ti Avila M.D. 12:00 Instructions Name Dates Details Instructions not documented Encounters Appointment; Ti Avila M.D. Encounter Diagnosis:Problem not documented 09:30
--- OUTSIDE RECORDS SUMMARY | 2016-09-09 13:37 | External Medical Summary | Continuity of Care Document ---
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, UNSPECIFIED SITE, EXTRANODAL AND SOLID ORGAN SITES 11/10/2014 GILES BILLS S 492.8 OTHER EMPHYSEMA 11/10/2014 GILES BILLS 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 Type Provider Facility Loc./Unit Complaint No. Date/Time [id number] 01/13/2014 01/13/2014 [facility] Outpatient [facility], 13:55:32 23:59:59 Alyssa Moreno [id number] 01/04/2014 01/04/2014 [facility], 14:42:15 23:59:59 Christopher Ayon [id number] 12/21/2013 12/21/2013 [facility], 14:03:36 23:59:59 Alyssa Moreno [id number] 12/20/2013 12/20/2013 [facility] Out[facility], 11:25:08 23:59:59 Christopher Ayon [id number] 12/14/2013 12/14/2013 [facility] Outpatient [facility], 15:14:47 23:59:59 Alyssa Moreno
--- OUTSIDE RECORDS SUMMARY | 2016-09-09 13:37 | External Medical Summary | Summary of Care ---
[...] MG Oral Tablet Refills:0 EppM.D., Ti Moreno [id number] Active Flomax 0.4 MG Oral Capsule Refills:0 EppM.D.Ti Zndwb3-[id number] Active Magnesium Oxide 400 MG Oral Tablet Refills:0 EppM.D.Ti Mgvvi4-Gwr-5466 Active Allergies and Adverse Reactions Name Dates [...] not documented Encounters Appointment; Ti Avila M.D. [id number] Encounter Diagnosis:Problem not documented 09:30
--- OUTSIDE RECORDS SUMMARY | 2016-09-09 13:37 | External Medical Summary | Continuity of Care Document ---
:1940 Author Organization [facility] Care Team Providers Name Role Phone DEB LARIOS Admitting Physician DEB LARIOS Attending Physician Hospital Admission Diagnosis No data in the System Social History Element Description Code Description Smoking Status Code Start Date End Date System Smoking Status 6832348 Former smoker SNOMED-CT Problems No data in the system Medications RxNorm Medication Dose Route Instructions Indications Start End Status Date Date 20020831 Citalopram 20 20 Oral orally every Active MG Oral Tablet milligram day Fiber 0.4 gram Oral orally every constipation Active day as needed. 6582 Magnesium Oxide 400 Oral orally 2 times health and Active milligram per day (; wellness Ordered Dose: of magnesium oxide) 015654 Tamsulosin 0.4 Oral orally every Active hydrochloride milligram day 0.4 MG Oral Capsule 487129 Gemfibrozil 600 600 Oral orally 2 times No MG Oral Tablet milligram per day Longer (administer 30 Active minutes before morning and evening meals) 197109 Ibuprofen 800 800 Oral orally pain No MG Oral Tablet milligram Longer Active Multivitamins 1 Oral orally every No tablet-caps day Longer ule Active 3353131 [place]-3 Acid Oral orally No Ethyl Esters (administer Longer (DETENTION) 1250 MG with a meal) Active Oral Capsule 7646 Omeprazole 20 Oral orally 2 times No milligram per day Longer (swallow whole Active (do not crush or chew) OR open capsule, sprinkle contents over tablespoonful applesauce; swallow all immediately/do not chew pellets) 005139 Pramipexole 0.5 Oral orally every No milligram day at bedtime Longer Active 270731 Tamsulosin 0.4 Oral orally every No hydrochloride milligram day Longer 0.4 MG Oral Active Capsule Allergies No Known Allergies Results No data in the system Vital Signs Vitals Value Date Body Temperature 97.3 F 08/19/2016 Respiratory Rate 20 08/19/2016 O2% BldC Oximetry 99 08/19/2016 BP Systolic 129 mmHg 08/19/2016 BP Diastolic 73 mmHg 08/19/2016 Height 68 in 08/19/2016 Weight Measured 153 lbs 08/19/2016 BSA (Body Surface Area) 1.97251 08/19/2016 BMI (Body Mass Index) 23.4 08/19/2016 Plan of Care No data in the system Procedures No data in the system Encounters No data in the system Immunizations No data in the system Functional Status No data in the system Hospital Discharge Instructions Plastic - BlephPostoperative Oculoplastic Surgery Instructions1. Your postoperative appointment is as scheduled.2. Call the office regarding any unusual pain, redness, swelling, excessive discharge, fever, or flu-like symptoms.Any vision changes not attributable to blurring from ointment should be reported to the hospital immediately. ([phone])3. After surgery on the tissue around the eye it is common to have increased secretions.Swelling and bruising are also common. You may use a washcloth or gauze with warm tap water to gently clean the area.4. If you have stitches, use hydrogen peroxide on a Q- tip to clean them several times a day.Peroxide dissolves dried blood and reduces swelling, but avoid getting it in your eyes.Apply the antibiotic ointment, which you were given at the hospital.5. Sleeping on a few extra pillows or in a recliner can reduce swelling.Ice or a cold compress applied for 20 minutes out of each hour while awake for the first 24-36 hours will also reduce swelling.Frozen peas or corn in a baggie make a good compress that can be reused.You may switch to warm compress after the first 2 days if it feels better.6. Normal activities can usually be resumed 1 - 2 weeks after surgery.Do not strain or perform vigorous activities while your stitches are in place. Do not swim for 2 weeks.Showering and washing hair can be done the day after surgery unless a dressing is in place.7. After some eyelid surgeries, it is common for the eyelids to close incompletely causing some dryness.Using lubricating ointment at bedtime can relieve this and moisture drops during the day.After the swelling resolves, the eyelids will usually close as before.9. Aspirin, ibuprofen (Motrin, Advil), naproxen (Aleve), and related drugs should be avoided for 2 wks before& after your surgery.These drugs can lead to bleeding problems.Extra strength Tylenol or your prescription pain pills can be used as needed.11. Expect to feel tired for the first 3 - 10 days. Get plenty of rest and eat well to restore your energy.You may want to start with bland food and then work your way back to your usual diet as your appetite improves.YOUR NEXT APPOINTMENT IS:08/30/2016 at 9:[address] Saravia
[2016-09-09 13:39] VITALS: RESP 25; O2SAT 88
[2016-09-09 14:11] VITALS: BMI 24.1
--- NOTE | 2016-09-09 14:21 | History & Physical Report ---
<Arabella Andrade V - Last Filed: 09/09/16 15:23> History of Present Illness Date: 09/09/16 Chief complaint: Acute dyspnea, Oropharynx Cancer with Lymphoma HPI: Mr Barriga is a pleasant 75 yr old male who resides in [facility]. He was originally diagnosed with lymphoma 2 years ago. In July 2016 He was found to have oropharyngeal mass which was excised on 07/12/16. Unfortunately, this was found to be lymphoma and he has been under the care of Dr. Renae for ongoing treatment. He started his 1st chemotherapy this past Friday09/04/16. The next several days following chemotherapy he did not feel well and began having increased shortness of breath over the weekend. On Thursday 09/07. He presented to the emergency room in [place], [place]. He was acutely evaluated and discharged home on breathing nebulizers, pro-air, and Lasix 40 milligrams daily. While in the emergency room. Chest x-ray was performed that did indicate trace pleural effusions, otherwise unremarkable. Today, he continued to have shortness of breath and contacted Dr. Renae's office who then advised patient to come to [facility] for further evaluation and treatment. Mister Barriga is seen today on arrival to [facility]. He is accompanied by his daughter. He is alert and oriented, able to give accurate history. Feeling worn out and fatigued. He is noted to be in mild respiratory distress requiring oxygen to maintain saturations. He also reports having constipation with decreased urinary output despite starting Lasix on Friday. We did review advanced directives and patient does was to be a full code Review of Systems All systems: reviewed and no additional remarkable complaints except as stated - Constitutional Constitutional: Present: fatigue, weakness - Cardiovascular Cardiovascular: Present: dyspnea on exertion - Gastrointestinal Gastrointestinal: Present: constipation Gastrointestinal Comments: Abdominal distention [facility] Patient Stated Medical History Follicular lymphoma involving oropharynx Abdominal aortic aneurysm-repaired COPD PVD Hearing Loss GERD Hx Incontinence Chemotherapy (started 09/04/16) Depression History of tobacco dependence History of anemia Surgical History: Tonsillectomy. AAA repair. Left eye surgery-August 2016. Oralpharyngeal mass, removal-07/12/16 Family History: Mother of questionable uterine cancer Father was killed in a plane accident at a young age - Social History Smoking status: Former smoker (quit 2014) Substance use type: does not use Alcohol intake frequency: does not drink Social history: Resides in [place], [place]. Exam Vital Signs: Respiratory Rate 25 H 09/09/16 13:37 Pulse Oximetry 88 L 09/09/16 13:37 Height: 1.73 m Weight: 72 kg Body Mass Index: 24.1 - Constitutional Present: mild distress - Routine HEENT Exam Head: Present: normocephalic, atraumatic Eye: Present: EOMI, PERRL ENT: Present: mucous membranes moist - Routine Neck Exam Present: full ROM - Routine Respiratory Exam Present: wheezes (mild expiratory) - Routine Cardiovascular Exam Present: RRR, S1, S2, tachycardia - Routine Abdominal Exam Present: soft, normoactive bowel sounds - Routine Back/Spine/Pelvis Exam Back/Spine: Present: full ROM - Routine Skin Exam Present: intact, dry, warm - Routine Neurological Exam Present: alert, oriented X3, CN II-XII intact - Routine Psychiatric Exam Present: normal affect, normal thought process Results - Labs CBC & Chem 7: 09/09/16 13:50 09/09/16 13:50 Assessment and Plan (1) Dyspnea Status: Acute (2) Follicular lymphoma Status: Acute (3) Oropharynx cancer Status: Acute (4) COPD (chronic obstructive pulmonary disease) Status: Acute (5) S/P AAA repair Status: Acute (6) History of anemia Status: Acute (7) Former tobacco use Status: Acute (8) PVD (peripheral vascular disease) Status: Acute DVT Prophylaxis: SCD's GI Prophylaxis: Protonix Resuscitation Status: Full Code Assessment and Plan: Admit patient to inpatient status under care of Dr. Michaels with dyspnea, follicular lymphoma with oral pharyngeal mass that has been resected Obtain follow-up laboratory studies on admission. CBC, CMP, BNP, venous lactate , LDH, magnesium, phosphorus, albumin, troponin, TSH, uric acid, and urinalysis. Obtain echocardiogram and EKG for further cardiac evaluation. Oxygen therapy to maintain adequate saturations. Obtain chest x-ray on admission and monitor patient on cardiac telemetry. Scheduled breathing treatments including DuoNeb scheduled 4 times a day and as needed. Start normal saline at 100 ML per hour for gentle hydration. At 1440- laboratory called to notify of critical elevated troponin at 23.4. That EKG was obtained showing some ST depression. At this time, cardiology was consulted for further cardiac evaluation and treatment. Discussed patient case with attending, Dr. Jose and cardiology. Venous lactate was found to be elevated at 4.1. Will repeat this as per sepsis protocol. Did review advanced directives with patient and he does verify date. He is a full code. Discuss further plan of care with Dr. Michaels. Hospital Course Summary Disclaimer: The visit summary below is not to be considered part of the above Progress Note. <Gavin Michaels D - Last Filed: 09/09/16 19:03> History of Present Illness Date: 09/09/16 [facility] Patient Stated Medical History Dental Problems Yes: full dentures Hearing Loss Yes Heart Murmur Yes Other Cardiology Yes: aortic anuerism Gastroesophageal Reflux Yes Disease Hx Incontinence Yes Chemotherapy Yes: last chemo was friday Depression Yes: med use Exam Vital Signs: Respiratory Rate 25 H 09/09/16 13:37 Pulse Oximetry 88 L 09/09/16 13:37 Oxygen Delivery Method Non-Rebreather Oxygen Flow Rate 15 Height: 1.73 m Weight: 72 kg Results - Labs CBC & Chem 7: 09/09/16 13:50 09/09/16 13:50 Microbiology Results: Microbiology 09/09/16 13:50 Peripheral/Iv Start Blood Culture - Preliminary Culture Initiated - Results Pending 09/09/16 13:54 Peripheral/Iv Start Blood Culture - Preliminary Culture Initiated - Results Pending Assessment and Plan (1) STEMI (ST elevation myocardial infarction) Status: Acute (2) Volume overload Status: Acute (3) CAD (coronary artery disease) Status: Chronic (4) Follicular lymphoma Status: Acute (5) Oropharynx cancer Status: Acute (6) COPD (chronic obstructive pulmonary disease) Status: Acute (7) Dyspnea Status: Acute (8) S/P AAA repair Status: Chronic (9) History of anemia Status: Acute (10) Former tobacco use Status: Acute (11) PVD (peripheral vascular disease) Status: Chronic Assessment and Plan: Have independently interviewed and examined pt. Chart reviewed. Case discussed with ED physician from [facility], Dr Jose, Dr Berumen, and my LIBRARY CATALOGING TECHNICIAN. Care plan developed with my supervision; agree with above. With finding of elevated troponin-Dr Berumen consulted. Recommended urgent cath. Did show diffuse, multi-vessel disease. Dr Berumen recommends urgent transport from cath lab tech to [facility] for for urgent CABG. Hospital Course Summary Disclaimer: The visit summary below is not to be considered part of the above Progress Note.
[2016-09-09] MEDS ORDERED: POLYETHYL GLYCOL 3350 17gm PACKET PO SCH (14:30)
[2016-09-09] MEDS ORDERED: HEPARIN 1,000 UNITS/500 ML PREMIX (*CVL ONLY*) IV ONE (15:28)
[2016-09-09] MEDS ORDERED: LIDOCAINE 1% (10mg/ml) 30ml SDV INJ ONE (15:28)
[2016-09-09] MEDS ORDERED: NS 1,000 ML IV SCH (15:30)
[2016-09-09] MEDS ORDERED: FentaNYL 100 MCG/2 ML INJECTION ONE (15:43)
[2016-09-09] MEDS ORDERED: MIDAZOLAM 2mg/2ml INJECTION ONE (15:43)
[2016-09-09] MEDS ORDERED: Verapamil 5 MG/2 ML VIAL ONE (15:59)
[2016-09-09] MEDS ORDERED: FUROSEMIDE 20 MG/2 ML INJECTION ONE (15:59)
[2016-09-09] MEDS ORDERED: NITROGLYCERIN 50MG INJECTION IV ONE (16:00)
[2016-09-09] MEDS ORDERED: HEPARIN 1,000unit/ml INJECTION 10ml ONE ×2 (16:01→16:28)
--- NOTE | 2016-09-09 16:15 | Cardiology Consult Note ---
History of Present Illness Consult date: 09/09/16 <Brittany Wheeler - 09/09/16 16:15> Requesting physician: Gavin Michaels <Brittany Wheeler - 09/09/16 16:15> Chief complaint: elevated troponin <Brittany Wheeler - 09/09/16 16:15> History of present illness: Mr Barriga is a pleasant 75 yr old male who resides in [facility]. He was originally diagnosed with lymphoma 2 years ago. In July 2016 He was found to have oropharyngeal mass which was excised on 07/12/16. Unfortunately, this was found to be lymphoma and he has been under the care of Dr. Renae for ongoing treatment. He started his 1st chemotherapy this past Friday09/04/16. The next several days following chemotherapy he did not feel well and began having increased shortness of breath over the weekend. On Thursday 09/07. He presented to the emergency room in [place], [place]. He was acutely evaluated and discharged home on breathing nebulizers, pro-air, and Lasix 40 milligrams daily. While in the emergency room. Chest x-ray was performed that did indicate trace pleural effusions, otherwise unremarkable. Today, he continued to have shortness of breath and contacted Dr. Renae's office who then advised patient to come to [facility] for further evaluation and treatment. Mister Barriga is seen today on arrival to [facility]. He is accompanied by his daughter. He is alert and oriented, able to give accurate history. Feeling worn out and fatigued. He is noted to be in mild respiratory distress requiring oxygen to maintain saturations. He also reports having constipation with decreased urinary output despite starting Lasix on Friday. Dr. Berumen was consulted due to elevated troponin, and ST depression on EKG. He is having an emergent left heart cath today <Brittany Wheeler - 09/09/16 17:52> Review of Systems - Constitutional Constitutional: Present: fatigue, weakness <Brittany Wheeler - 09/09/16 16:15> - EENMT Eyes: Absent: change in vision <Brittany Wheeler - 09/09/16 17:52> Balance: Absent: vertigo <Brittany Wheeler 09/09/16 17:52> Mouth/Throat: Absent: sore throat <SummerBrittany Lemus 09/09/16 17:52> - Cardiovascular Cardiovascular: Present: dyspnea on exertion. Absent: chest pain, palpitations , syncope, orthopnea <SummerBrittany marquis 09/09/16 17:52> Vascular: Absent: pedal edema <SummerBrittany Allan 09/09/16 17:52> - Respiratory Respiratory: Absent: cough, dyspnea <SummerBrittany marquis 09/09/16 17:52> - Gastrointestinal Gastrointestinal: Present: constipation, dyspepsia, nausea <SummerBrittany Allan 09/09/16 17:52> - Genitourinary Genitourinary: Absent: dysuria <SumemrBrittany marquis Allan 09/09/16 17:52> - Neurological Neurological: Absent: dizziness <SummerBrittany marquis Allan 09/09/16 17:52> [facility] Patient Stated Medical History Dental Problems Yes: full dentures Hearing Loss Yes Heart Murmur Yes Other Cardiology Yes: aortic anuerism Gastroesophageal Reflux Yes Disease Hx Incontinence Yes Chemotherapy Yes: last chemo was friday Depression Yes: med use <Santi Berumen - 09/11/16 13:28> Patient Stated Medical History Dental Problems Yes: full dentures Hearing Loss Yes Heart Murmur Yes Other Cardiology Yes: aortic anuerism Gastroesophageal Reflux Yes Disease Hx Incontinence Yes Chemotherapy Yes: last chemo was friday Depression Yes: med use <SummerBrittany marquis 09/09/16 16:15> Surgical History: Tonsillectomy. AAA repair. Left eye surgery-August 2016. Oralpharyngeal mass, removal-07/12/16 <Brittany Wheeler 09/09/16 16:15> - Social History Smoking status: Former smoker (quit 2014) <Brittany Wheeler 09/09/16 16:15> Household members: spouse <Brittany Wheeler 09/09/16 17:52> Current residence: Apartment/Private Home <Brittany Wheeler 09/09/16 17:52> Medications Home Medications Medication Instructions Recorded Confirmed Type No known Home medications [No home 09/09/16 09/09/16 History meds] <Santi Berumen - 09/11/16 13:28> Exam Vital signs: Respiratory Rate 25 H 07/10/17 13:37 Pulse Oximetry 88 L 09/09/16 13:37 Oxygen Delivery Method Non-Rebreather Oxygen Flow Rate 15 <Jessi Berumenin - 09/11/16 13:28> Respiratory Rate 25 H 09/09/16 13:37 Pulse Oximetry 88 L 09/09/16 13:37 <SummerBrittany [facility] 09/09/16 16:15> - Constitutional mild distress, thin, cooperative <SummerBrittany [facility] 09/09/16 16:15> - Routine HEENT Exam ENT: Present: mucous membranes moist <SummerBrittany [facility] 09/09/16 16:15> - Routine Neck Exam Present: JVD, carotid bruit <SummerBrittany [facility] 09/09/16 16:15> - Routine Chest/Breast/Axilla Exam Chest wall: Absent: tenderness <SummerBrittany [facility] 09/09/16 17:52> - Routine Respiratory Exam Present: rales (bilateral). Absent: CTA bilaterally <SummerBrittany [facility] 17:52> Results 09/09/16 13:50 09/09/16 13:50 <Jessi Berumenin 09/11/16 13:28> Cardiac Enzymes 09/09/16 Range/Units 13:50 AST 124 H (17-59) U/L Lactate Dehydrogenase 1670 H (313-618) U/L Troponin I 23.400 H (0-0.12) ng/ml B-Natriuretic Peptide > 63577 H (0-175) pg/mL Coagulation 09/09/16 Range/Units 13:50 B-Natriuretic Peptide > 52062 H (0-175) pg/mL CBC 09/09/16 Range/Units 13:50 WBC 14.6 H (4.5-11.0) T/MM3 RBC 3.81 L (4.50-5.90) M/MM3 Hgb 10.9 L (13.5-17.5) GM/DL Hct 33.2 L (41-53) % Plt Count 86 L (130-400) T/MM3 Neut # Not performed Lymph # Not performed Charles # Not performed Eos # Not performed Baso # Not performed Comprehensive Metabolic Panel 07/10/17 Range/Units 13:50 Sodium 133 L (134-144) MEQ/L Potassium 4.4 (3.6-5) MEQ/L Chloride 98 (98-107) MEQ/L Carbon Dioxide 24 (22-30) MEQ/L BUN 55.0 H* (9-20) MG/DL Creatinine 2.4 H (0.8-1.5) MG/DL Glucose 141 H (75-110) MG/DL Calcium 8.7 (8.4-10.2) MG/DL AST 124 H (17-59) U/L ALT 72 (21-72) U/L Alkaline Phosphatase 82 (38-126) U/L Total Protein 5.5 L (6.3-8.2) G/DL Albumin 3.7 (3.5-5.0) G/DL Intake and Output 09/09/16 09/09/16 09/09/16 06:59 14:59 22:59 Other: Weight 158 lb 11.725 oz Patient Weight 09/10/16 06:59 Weight 158 lb 11.725 oz <Brittany Wheeler - 09/09/16 16:15> EKG interpretations - Dysrhythmias Sinus rhythms and dysrhythmias: sinus tachycardia <Brittany Wheeler - 09/09/16 17:52> - Blocks, axis, hypertrophy, ST abn Repolarization changes or abnormalities: ST or T wave suggestive of ischemia < Brittany Wheeler - 09/09/16 17:52> - RI, pacemaker, normal Myocardial infarction: septal RI (acute or recent), anterior RI (acute or recent ) <Brittany Wheeler - 09/09/16 17:52> Assessment and Plan (1) Follicular lymphoma Status: Acute (2) S/P AAA repair Status: Chronic (3) PVD (peripheral vascular disease) Status: Chronic (4) NSTEMI (non-ST elevated myocardial infarction) Status: Acute (5) CAD (coronary artery disease) Status: Chronic (6) Systolic CHF, acute Status: Acute (7) Acute kidney injury Status: Acute <Santi Berumen - 09/11/16 13:28> (1) NSTEMI (non-ST elevated myocardial infarction) Status: Acute Troponin 23.400, LDH 1670. EKG ST with ST depression in precordial leads, likely anteroseptal RI. To cardiac cath lab technologist now (2) Systolic CHF, acute Status: Acute EF 20%, down from last recent echo EF 55%. Needs diuresis with Bumex drip. Lasix 80mg iv given in cardiac cath lab technologist. Monitor renal and electroltyes. Creatinine 2.5 pre cath (3) Follicular lymphoma Status: Acute per heme/onc. (4) CAD (coronary artery disease) Status: Chronic Severe multivessel disease, transfer for surgical consultation for urgent CABG. (5) S/P AAA repair Status: Chronic (6) PVD (peripheral vascular disease) Status: Chronic (7) Acute kidney injury Status: Acute Heme/onc reports last creatinine around 1.3 <Brittany Wheeler - 09/09/16 17:39> - Attestation Attestation Narrative: 09/11/16 13:28 Recommendation After examining the patient I agree with the above assessment. I am involved in the formulation of the patient's plan of care. <Santi Berumen - 09/11/16 13:28> Hospital Course Summary Disclaimer: The visit summary below is not to be considered part of the above Progress Note. <Santi Berumen - 09/11/16 13:28> The visit summary below is not to be considered part of the above Progress Note. <Brittany Wheeler - 09/09/16 16:15> Sepsis Assessment - Evaluation Sepsis screening result: No Definite Risk <Brittany Wheeler - 09/09/16 16:15>
[2016-09-09] MEDS ORDERED: ASPIRIN 325 MG TABLET ONE (16:28)
--- NOTE | 2016-09-09 16:47 | Discharge Summary ---
Discharge Information Date of admission: 09/09/16 16:25 Anticipated date of discharge: 09/09/16 Attending Physician: Gavin Michaels MD Primary care physician: Vivek oJse MD Consults: 09/09/16 11:19 [Physician Consult] [CONS] Routine Consulting Provider: Vivek Jose Reason For Exam: NHL Ordering Provider has Notified Grip Boss: No 09/09/16 14:46 Physician Consult [CONS] Routine Consulting Provider: Santi Berumen Reason For Exam: elevated troponin Ordering Provider has Notified Grip Boss: Yes - Discharge Diagnosis (1) STEMI (ST elevation myocardial infarction) Status: Acute (2) Volume overload Status: Acute (3) CAD (coronary artery disease) Status: Chronic (4) Follicular lymphoma Status: Acute (5) Oropharynx cancer Status: Acute (6) COPD (chronic obstructive pulmonary disease) Status: Acute (7) Dyspnea Status: Acute (8) S/P AAA repair Status: Chronic (9) History of anemia Status: Acute (10) Former tobacco use Status: Acute (11) PVD (peripheral vascular disease) Status: Chronic - Procedures Procedures: Cath - Dr Berumen - Laboratory Labs: 09/09/16 13:50 09/09/16 13:50 - Microbiology Microbiology 09/09/16 13:50 Peripheral/Iv Start Blood Culture - Preliminary Culture Initiated - Results Pending 09/09/16 13:54 Peripheral/Iv Start Blood Culture - Preliminary Culture Initiated - Results Pending History of Present Illness HPI: Mr Barriga is a pleasant 75 yr old male who resides in [facility]. He was originally diagnosed with lymphoma 2 years ago. In July 2016 He was found to have oropharyngeal mass which was excised on 07/12/16. Unfortunately, this was found to be lymphoma and he has been under the care of Dr. Renae for ongoing treatment. He started his 1st chemotherapy this past Friday09/04/16. The next several days following chemotherapy he did not feel well and began having increased shortness of breath over the weekend. On Thursday 09/07. He presented to the emergency room in [place], [place]. He was acutely evaluated and discharged home on breathing nebulizers, pro-air, and Lasix 40 milligrams daily. While in the emergency room. Chest x-ray was performed that did indicate trace pleural effusions, otherwise unremarkable. Today, he continued to have shortness of breath and contacted Dr. Renae's office who then advised patient to come to [facility] for further evaluation and treatment. Mister Barriga is seen today on arrival to [facility]. He is accompanied by his daughter. He is alert and oriented, able to give accurate history. Feeling worn out and fatigued. He is noted to be in mild respiratory distress requiring oxygen to maintain saturations. He also reports having constipation with decreased urinary output despite starting Lasix on Friday. We did review advanced directives and patient does was to be a full code Objective Vital signs: Respiratory Rate 25 H 09/09/16 13:37 Pulse Oximetry 88 L 09/09/16 13:37 Body Mass Index: 24.1 Hospital Course This is a general summary of the patient's hospital course. For more details refer to the complete medical record. Hospital course: 09/09 Admit patient to inpatient status under care of Dr. Michaels with dyspnea, follicular lymphoma with oral pharyngeal mass that has been resected Obtain follow-up laboratory studies on admission. CBC, CMP, BNP, venous lactate , LDH, magnesium, phosphorus, albumin, troponin, TSH, uric acid, and urinalysis. Obtain echocardiogram and EKG for further cardiac evaluation. Oxygen therapy to maintain adequate saturations. Obtain chest x-ray on admission and monitor patient on cardiac telemetry. Scheduled breathing treatments including DuoNeb scheduled 4 times a day and as needed. Start normal saline at 100 ML per hour for gentle hydration. At 1440- laboratory called to notify of critical elevated troponin at 23.4. That EKG was obtained showing some ST depression. At this time, cardiology was consulted for further cardiac evaluation and treatment. Discussed patient case with attending, Dr. Jose and cardiology. Venous lactate was found to be elevated at 4.1. Will repeat this as per sepsis protocol. Did review advanced directives with patient and he does verify date. He is a full code. Dr Berumen did take pt to geochemical laboratory technician revealing extensive coronary artery disease. Recommends urgent bipass. Arrangements for transfer to [facility] Pt transported in critical condition. DVT Prophylaxis: SCD's Discharge Plan - Med Rec/Dispo Prescriptions: Continue No known Home medications [No home meds] 0 #0 misc Discharge Instructions/Outpatient Orders: Final Provider Discharge Instructions Location: Determined By Patient - Disposition 02 To [facility] Acute Care
--- NOTE | 2016-09-09 16:57 | Consult Note ---
Oncology HPI - Data of Consult Patient: known to practice within the last 3 years Consult date: 09/09/16 Requesting Physician: Gavin Michaels MD Primary Care Provider: Vivek Jose MD Family Provider: Vivek Jose MD - Consult Narrative Reason for consult: hypoxemia History of present illness: History of present illness --12/15/13: Biopsy of left inguinal lymph node showing grade 1-2 follicular lymphoma. 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 --Abdominal aortic aneurysm, bilobed up to 5 cm. --Sees Dr Escobar 05/09/15 for evaluation of AAA. --25 pound weight loss over the past 3 years. He usually weighed about 165 pounds and today weighed in at 140 pounds. No fever or chills possibly symptoms of night sweats. --01/2014: Second opinion from MD Rice. --05/04/15: CT showing increasing nodes and mild left hydronephrosis. --08/03/15: CT showing decrease in most lymph nodes with a stable 3.8 left pelvic lymph node and no hydronephrosis. --07/12/16: Mass in the posterior tongue with biopsy showing lymphoma. Final pathology came back revealing grade 3 the follicular lymphoma that is treated is diffuse large cell lymphoma. --07/23/16: Began weekly Rituxan. --08/29/16: Portacath placement by Dr. Andujar --09/04/16: Initiation of planned 6 cycles of R-CHOP --09/06/16: Indigestion with burping --09/07/16: ER evaluation for shortness of breath. Hypoxic. Chest x-ray showed some interstitial edema. BNP was elevated at 730. Creatinine was 1.1, Was given Lasix and sent home to follow-up. --09/09/16: Patient came into the oncology clinic in [place] today with increasing shortness of breath and O2 sat of 81% on room air on arrival. Lab was drawn and sent to the emergency room for further evaluation and transferred to [facility] for further evaluation. Laboratory in [place] showed a creatinine of 2.4, LDH of 500 there are upper limits of normal is 221. The patient was seen and complained of epigastric discomfort that happen on and again on Friday and Friday. [place] like he needed to burp. Laboratory evaluation at [facility] showed a troponin of 23, LDH of 1600 with upper limits of normal being 621 lactate elevated at 4.1 patient was seen by Dr. Morales and taken to the Medical Microbiologist with the finding of significant coronary artery disease with near 90% obstruction of left main, left anterior descending, circumflex and right. Echo showed decreased ejection fraction of 20%. Dr. Morales was arranging transfer to [facility] for urgent cardiopulmonary bypass tomorrow. Review of Systems - Constitutional Constitutional: Present: weakness - Cardiovascular Additional comments: Epigastric pain with burping - Respiratory Respiratory: Present: dyspnea, dyspnea on exertion, wheezing - Gastrointestinal Gastrointestinal: Present: constipation, dyspepsia, nausea - Genitourinary Genitourinary: Present: other (decreased urinary output) - Musculoskeletal Musculoskeletal: Present: muscle weakness - Psychiatric Psychiatric: Present: anxiety (jitteriness) - Hematologic/Lymphatic Hematologic/Lymphatic: Absent: easy bruising, lymphadenopathy PFS Patient Stated Medical History Dental Problems Yes: full dentures Hearing Loss Yes Heart Murmur Yes Other Cardiology Yes: aortic anuerism Gastroesophageal Reflux Yes Disease Hx Incontinence Yes Chemotherapy Yes: last chemo was friday Depression Yes: med use Surgical History: Tonsillectomy. AAA repair. Left eye surgery-August 2016. 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 Absent: lymphadenopathy - Routine Respiratory Exam Present: accessory muscle use, rales, rhonchi, distant breath sounds, diminished air movement - Routine Cardiovascular Exam Present: RRR, S3, JVD - Routine Abdominal Exam Present: soft, non tender, distended - Routine Extremities Exam Present: edema. Absent: cyanosis - Routine Skin Exam Present: dry, warm - Routine Neurological Exam Present: CN II-XII intact, moving all extremities Oncology Results - Labs CBC & Chem 7: 09/09/16 13:50 09/09/16 13:50 Labs: Short CBC 09/09/16 Range/Units 13:50 WBC 14.6 H (4.5-11.0) T/MM3 Hgb 10.9 L (13.5-17.5) GM/DL Hct 33.2 L (41-53) % Plt Count 86 L (130-400) T/MM3 BMP 09/09/16 13:50 Sodium 133 L Potassium 4.4 Chloride 98 Carbon Dioxide 24 BUN 55.0 H* Creatinine 2.4 H Glucose 141 H Calcium 8.7 Cardiac Enzymes 09/09/16 Range/Units 13:50 Troponin I 23.400 H (0-0.12) ng/ml Liver Function 09/09/16 Range/Units 13:50 Total Bilirubin 0.70 (0.20-1.30) MG/DL AST 124 H (17-59) U/L ALT 72 (21-72) U/L Alkaline Phosphatase 82 (38-126) U/L Albumin 3.7 (3.5-5.0) G/DL Urine 09/09/16 Range/Units 15:35 Urine Color Yellow (YELLOW) Urine Clarity Sl cloudy Urine pH 5.0 (5.0-8.0) Ur Specific [place] >=1.030 H (1.015-1.025) Urine Protein Trace A (NEGATIVE) Urine Glucose (UA) Negative (NEGATIVE) - Impressions Laboratory Tests 09/09/16 09/09/16 09/09/16 13:50 13:50 15:35 WBC 14.6 H Hgb 10.9 L Plt Count 86 L BUN 55.0 H* Creatinine 2.4 H Uric Acid 5.3 Phosphorus 5.1 H AST 124 H ALT 72 Alkaline Phosphatase 82 Lactate Dehydrogenase 1670 H Troponin I 23.400 H B-Natriuretic Peptide > 77406 H Plasma Lactate 4.1 H* Ur Specific [place] >=1.030 H Assessment and Plan Assessment and Plan: 1. Acute IN with cardiogenic shock, renal insufficiency, decreased ejection fraction, elevated lactate with significant coronary artery disease with over 90 percent of left main, LAD, circumflex and right coronary. Ejection fraction is decreased at 20%. Heart catheter urgently today by Dr. Morales with the plan for bypass surgery tomorrow 2. Cardiogenic shock with elevated lactate renal insufficiency and congestive heart failure with hypoxemia secondary to the congestive heart failure 3. History of grade 2 follicular lymphoma with evolution to a grade 3 follicular lymphoma at the base the tongue status post excision and 2 cycles of Rituxan with no further problem status post R CHOP chemotherapy on 09/04 with no evidence of cardiomyopathy and ejection fraction of 50-55%. 4. Chronic obstructive pulmonary disease 5. Former smoker 6. Thrombocytopenia secondary to chemotherapy with platelets today of 86,000. Plan cardiac evaluation Therapy based on Dr. Morales's evaluation. Careful anticoagulation with renal insufficiency and thrombocytopenia Aggressive cardiac care as this is a potentially curable malignancy Sepsis Assessment - Evaluation Sepsis screening result: No Definite Risk
[2016-09-09] MEDS ORDERED: ALBUTEROL/IPRATROPIUM 2.5mg-0.5mg/3ml NEB AEROSOL SCH (17:00)
--- NOTE | 2016-09-10 10:19 | Echocardiogram ---
DATE OF PROCEDURE September 09, [address] Gavin Michaels This is a two-dimensional echo with spectral Doppler, color-flow and M-mode. It was obtained in a patient with dyspnea and pulmonary edema. Left atrial dimension is normal. Left ventricle end-diastolic dimension is increased. Left ventricle wall thickness is normal. Severe global hypokinesia is present with ejection fraction of about 20%. Right atrium is normal. Right ventricle is normal. Aortic root dimension is normal. Mitral valve shows severe mitral regurgitation. Aortic valve is a trileaflet structure with fibrocalcific changes. In some ways it appears to be stenotic. However, the velocities are mildly increased with peak velocity across the aortic valve at 1.27 m/sec. Aortic valve area is calculated at 1.35 cm2. Mild aortic insufficiency is present. Tricuspid valve shows moderate tricuspid regurgitation with moderate pulmonary hypertension with estimated pulmonary artery systolic pressure of 59. Pulmonary valve shows no pulmonary insufficiency. There is no pericardial effusion. Pleural effusion is present. IMPRESSION 1. Global hypokinesia with ejection fraction of about 20%. 2. Left ventricular dilation. 3. Severe mitral regurgitation. 4. Aortic sclerosis versus mild aortic stenosis with a valve area of 1.35 cm2 with mild aortic insufficiency. 5. Moderate tricuspid regurgitation with moderate pulmonary hypertension with estimated pulmonary artery systolic pressure of 59. 6. Pleural effusion. MTDD
--- NOTE | 2016-09-10 11:18 | Cardiac Catheterization Report ---
DATE OF PROCEDURE September 09, [address] Vivek Jose The patient is a pleasant 75-year-old gentleman who was admitted with shortness of breath and was found to have non-ST elevation myocardial infarction with significant ST depression in anterior leads and echocardiogram revealing LV dysfunction with ejection fraction of about 20% and was referred for further evaluation by cardiac catheterization and possible intervention. Informed consent was obtained after explaining the procedure and the potential risks to the patient who agreed to proceed with the procedure. PROCEDURE 1. Left heart catheterization. 2. Coronary angiography. 3. Measurement of the LVEDP by crossing the aortic valve and placing catheter in left ventricular cavity. TECHNIQUE He was prepped and draped in the usual sterile techniques. Conscious sedation was performed using Versed and fentanyl. 1% lidocaine was used for local anesthesia. Using modified Seldinger technique, arterial access was obtained into the right radial artery with placement of a 6-Emirati arterial sheath. 3000 units of heparin, 300 mcg of nitroglycerin and 2.5 mg of verapamil were given through the arterial sheath. Left ventricular end-diastolic pressure was measured at 34 and there was no gradient across the aortic valve. CORONARY ANGIOGRAPHY Left main had about 90% distal and 70% proximal stenosis. It bifurcated into left anterior descending and left circumflex arteries. Left anterior descending artery had minor irregularities with no hemodynamically significant lesions in LAD or diagonals. Left circumflex artery had 90% stenosis with 50% distal stenosis. Right coronary artery was codominant with 90% mid stenosis. The patient tolerated the procedure well with no complications. Due to presence of aortic stent graft we did not wish to proceed with intra- aortic balloon pump insertion. The patient tolerated the procedure well with no complications. IMPRESSION 1. Elevated LV end-diastolic pressure. 2. Severe multivessel coronary artery disease including left main. PLAN Will transfer the patient and consult surgery for possible surgical revascularization of his coronary artery disease. NORRIS
== END 2016-09-09 16:30 | disposition short-term general hospital (02) | DRG 280 ==
LOC: MED → CCU 16:06
PROVIDERS: ADMIT Hospitalist; ATTEND Hospitalist